=== PATIENT | female | born 1985 | race Caucasian/White ===

== ENCOUNTER 2021-08-05 13:17 | Emergency (ER) | payer OTHER, SELFPAY ==
[2021-08-05 13:25] VITALS: BP 132/74; PULSE 86; RESP 18; TEMP 36.7; O2SAT 100
--- NOTE | 2021-08-05 13:44 | ED.URI ---
HPI - URI/Sore Throat General Chief Complaint: Upper Respiratory Infection Stated Complaint: Sinus,Congestion Time Seen by Provider: 08/05/21 13:35 Source: patient Mode of arrival: ambulatory Limitations: no limitations History of Present Illness HPI Narrative: Johana Goodson is a 36 yo female with no PMH [facility] congestion and enlarged lymph nodes; no fever but this has been going on for almost 2 weeks and has not improved even with use of Sudafed, Mucinex, Zyrtec, Flonase, Tylenol and ibuprofen Related Data Home Medications Medication Instructions Recorded Confirmed cetirizine [Zyrtec] 10 mg PO DAILY 08/05/21 08/05/21 multivitamin,[id number] 1 tablet PO DAILY 08/05/21 08/05/21 [Complete Multivitamin] Allergies Allergy/AdvReac Type Severity Reaction Status Date / Time No Known Allergies Allergy Mild Verified 08/05/21 13:22 Review of Systems Review of Systems: CONSTITUTIONAL: Denies fever, chills, sweats. EYES: Denies visual changes, redness, discharge. ENT: Denies as rhinorrhea, has congestion, sore throat, otalgia. CARDIOVASCULAR: Denies chest pain, palpitations, edema. RESPIRATORY: Denies dyspnea, wheezing, has cough GASTROINTESTINAL: Denies abdominal pain, nausea, vomiting, diarrhea. GENITOURINARY: Denies dysuria, hematuria, abnormal discharge SKIN: Denies rash or itching. NEUROLOGIC: Denies numbness, or focal weakness. PSYCHIATRIC: Denies anxiety or depression. [facility] Past Medical History Medical History No acute medical problems Social History Social History (Updated 08/05/21 @ 13:48 by Carolyn Campos CNP) Smoking status: Never smoker Alcohol intake: current Comments At time of signature, I agree with nursing past medical, surgical, social and family history. There is no relevant family history pertinent to the presenting complaint. Exam Narrative: GENERAL: This is a well-nourished, well-developed patient, in mild distress. HEAD: normocephalic, atraumatic. EYES: Sclera clear/white. Vision is grossly intact. EARS: External ears normal, auditory canals erythema and without drainage, fluid behind TMs. Hearing grossly intact. NOSE: External nose normal with nasal discharge, nares with redness, has rhinorrhea. THROAT: Mucous membranes moist, posterior pharynx mild erythema NECK: Neck supple, bilateral submandibular lymph nodes are mildly tender CARDIOVASCULAR: Regular rate and rhythm without murmurs, gallops, or rubs. RESPIRATORY: Clear to auscultation. Breath sounds equal bilaterally. No wheezes, rales, or rhonchi. GASTROINTESTINAL: Abdomen soft, non-tender, SKIN: warm, intact with no suspicious lesions or rash, good texture and turgor. NEURO: awake, alert, and oriented to person, place and time. There were no obvious focal neurologic abnormalities. Steady gait EXTREMITIES: Normal range of motion. BACK: Nontender without deformity Course Course Emergency Course: Patient here for upper respiratory symptoms been going on for last 2 weeks and gradually worsening she is taken most [id number] medication to try to treat her self in clinic Sudafed is not been helpful Lack of improvement and worsening lymph nodes decided to treat patient with Amoxicillin 875 1 twice daily x10 days Prednisone 40 mg x 5 days Level of Care: Express Care Visit Vital Signs Vital signs: Vital Signs Temperature 98.0 F 08/05/21 13:25 Pulse Rate 86 08/05/21 13:25 Respiratory Rate 18 08/05/21 13:25 Blood Pressure 132/74 08/05/21 13:25 Pulse Oximetry 100 08/05/21 13:25 Temperature 98.0 F 08/05/21 13:25 Pulse Rate 86 08/05/21 13:25 Respiratory Rate 18 08/05/21 13:25 Blood Pressure 132/74 08/05/21 13:25 Pulse Oximetry 100 08/05/21 13:25 MDM - URI/Sore Throat Differential Diagnosis Differential diagnosis: Likely upper respiratory infection, sinusitis, viral infection, bronchitis, influenz
== END 2021-08-05 13:53 | disposition home or self-care (01) ==
PROVIDERS: Emergency Provider Nurse Practitioner; PCP Internal Medicine
DX: J32.9 Chronic sinusitis, unspecified (principal); I88.9 Nonspecific lymphadenitis, unspecified
CPT/HCPCS: 99213; G0463